=== PATIENT | female | born 1945 | race Caucasian/White ===

== ENCOUNTER → 2019-12-25 | Outpatient (CLI) | payer BC, MEDICARE ==
--- NOTE | 2019-12-26 13:36 | CARD ---
MR#: [id number] Date of Study: 12/25/2019 Ordering Physician: HERMAN VAUGHAN, Referring Physician: HERMAN VAUGHAN, Tech: Kalie Bueno APPROVED REPORT EXAM: Two-dimensional and M-mode echocardiogram with Doppler and color Doppler. Other Information Quality : Average INDICATION Dyspnea RISK FACTORS Hypertension Hyperlipidemia 2D DIMENSIONS RVDd2.9 (2.9-3.5cm)Left Atrium(2D)2.7 (1.6-4.0cm) IVSd0.5 (0.7-1.1cm)Aortic Root(2D)2.7 (2.0-3.7cm) LVDd4.0 (3.9-5.9cm)LVOT Diameter2.0 (1.8-2.4cm) PWd0.8 (0.7-1.1cm)LVDs2.7 (2.5-4.0cm) FS (%) 32.2 %SV43.4 ml LVEF(%)60.9 (>50%) Aortic Valve AoV Peak Jamey.142.7cm/sAoV VTI30.9cm AO Peak GR.8.1mmHgLVOT Peak Jamey.80.1cm/s LVOT VTI 19.92cmAO Mean GR.4mmHg PRUDENCE (VMAX)1.51rk2YQI (VTI)1.93cm2 Mitral Valve MV E Vfzsmlwe06.7cm/sMV E Peak Gr.80mmHg MV DECEL OCTS261obXI A Feqbxema197.1cm/s MV E Mean Gr.4mmHgMV GEC90fd E/A Ratio0.8MVA (PHT)3.30cm2 TDI E/Lateral E'11.2E/Medial E'18.9 Pulmonary Valve PV Peak Qeeugsag69.0cm/sPV Peak Grad.3mmHg Tricuspid Valve TR P. Dqlriwca871np/sRAP SUQQRLCJ1chXn TR Peak Gr.53ctSlAIEC48atQb Pulmonary Vein S1 Boqhggbh10.6cm/sD2 Abgmernf62.4cm/s PVa zxtnjwde852fddo LEFT VENTRICLE The left ventricle is normal size. There is normal left ventricular wall thickness. The left ventricu lar systolic function is normal and the ejection fraction is within normal range. The Ejection Fracti on is 55-60%. There is normal LV segmental wall motion. Transmitral Doppler flow pattern is Grade I-a bnormal relaxation pattern. RIGHT VENTRICLE The right ventricle is normal size. There is normal right ventricular wall thickness. The right ventr icular systolic function is normal. ATRIA The left atrium size is normal. The right atrium size is normal. The interatrial septum is intact wit h no evidence for an atrial septal defect or patent foramen ovale as noted on 2-D or Doppler imaging. AORTIC VALVE The aortic valve is normal in structure and function. Doppler and Color Flow revealed no significant aortic regurgitation. There is no significant aortic valvular stenosis. MITRAL VALVE The mitral valve is normal in structure and function. There is no evidence of mitral valve prolapse. There is no mitral valve stenosis. Doppler and Color-flow revealed mild mitral regurgitation. TRICUSPID VALVE The tricuspid valve is normal in structure and function. Doppler and Color Flow revealed mild tricusp id regurgitation with an estimated PAP of 39 mmHg. There is no tricuspid valve stenosis. PULMONIC VALVE The pulmonary valve is normal in structure and function. Doppler and Color Flow revealed no pulmonic valvular regurgitation. There is no pulmonic valvular stenosis. GREAT VESSELS The aortic root is normal in size. The ascending aorta is normal in size. The IVC is normal in size a nd collapses >50% with inspiration. PERICARDIAL EFFUSION There is no evidence of significant pericardial effusion. Critical Notification Critical Value: No <Conclusion> The left ventricular systolic function is normal and the ejection fraction is within normal range. Th e Ejection Fraction is 55-60%. There is normal LV segmental wall motion. Signed by : Aubrey Jung, Electronically Approved : 12/25/2019 11:12:52
== END | disposition home or self-care (01) ==
LOC: ECHO 09:08
PROVIDERS: ATTEND Internal Medicine Pulmonary Disease
DX: I08.1 Rheumatic disorders of both mitral and tricuspid valves (principal)
CPT/HCPCS: 93306